=== PATIENT | male | born 1945 ===

== ENCOUNTER 2017-12-22 07:50 | Emergency (ER) | payer OTHER ==
[~2017-12-22] VITALS: Ht 165.1 cm; Wt 117.9 kg
[2017-12-22] MEDS ORDERED: METFORMIN HCL500 M2 (08:14)
[2017-12-22] MEDS ORDERED: ZOCOR5 MG (08:14)
[2017-12-22] MEDS ORDERED: VERAPAMIL ER240 MG (08:15)
[2017-12-22] MEDS ORDERED: ENALAPRIL MALEA10 MG (08:15)
[2017-12-22] MEDS ORDERED: ZIOPTAN 0.00151 EACH (08:18)
== END 2017-12-22 17:32 | disposition home or self-care (01) ==
LOC: ER 07:50
DX: J45.901 Unspecified asthma with (acute) exacerbation (principal); J11.1 Influenza due to unidentified influenza virus with other respiratory manifestations